=== PATIENT | female | born 1960 | race Caucasian/White ===

== ENCOUNTER → 2023-07-26 13:40 | Outpatient (REF) | payer OTHER, SELFPAY | LOC: HWWDC 13:40 | PROVIDERS: ATTENDING PHYSICIAN Nurse Practitioner Adult Health | DX: Z12.31 Encounter for screening mammogram for malignant neoplasm of breast (principal) | CPT/HCPCS: 77063; 77067 ==

== ENCOUNTER → 2023-09-01 10:53 | Outpatient (REF) | payer OTHER, SELFPAY | LOC: HWRAD 10:53 | PROVIDERS: ATTENDING PHYSICIAN Nurse Practitioner Adult Health; FAMILY PHYSICIAN Nurse Practitioner Adult Health | DX: N95.0 Postmenopausal bleeding (principal) | CPT/HCPCS: 76830; 76856 ==

== ENCOUNTER → 2023-12-21 12:24 | Outpatient (REF) | payer OTHER, SELFPAY | LOC: PAVMRI 12:24 | PROVIDERS: ATTENDING PHYSICIAN Otolaryngology; FAMILY PHYSICIAN Nurse Practitioner Adult Health | DX: C09.9 Malignant neoplasm of tonsil, unspecified (principal); C76.0 Malignant neoplasm of head, face and neck | CPT/HCPCS: 70543; A9575 ==

== ENCOUNTER → 2023-12-22 06:18 | Day surgery (SDC) | payer OTHER, SELFPAY | LOC: GI 06:18 | PROVIDERS: ATTENDING PHYSICIAN Internal Medicine Gastroenterology | DX: Z12.11 Encounter for screening for malignant neoplasm of colon (principal); K63.89 Other specified diseases of intestine; Q43.8 Other specified congenital malformations of intestine; K64.8 Other hemorrhoids; Z83.719 Family history of colon polyps, unspecified | CPT/HCPCS: G0105 ==

== ENCOUNTER 2024-04-30 06:26 | Outpatient (RCR) | payer OTHER, SELFPAY | END 2024-04-30 23:59 | disposition home or self-care (01) | LOC: RPT 06:26 | PROVIDERS: ATTENDING PHYSICIAN Otolaryngology; FAMILY PHYSICIAN Nurse Practitioner Adult Health | DX: M54.2 Cervicalgia (principal); Z73.6 Limitation of activities due to disability; M62.81 Muscle weakness (generalized); Z85.89 Personal history of malignant neoplasm of other organs and systems | CPT/HCPCS: 97110; 97161 ==

== ENCOUNTER 2024-05-23 14:08 | Outpatient (RCR) | payer OTHER, SELFPAY | END 2024-05-23 23:59 | disposition home or self-care (01) | LOC: RPT 14:08 | PROVIDERS: ATTENDING PHYSICIAN Otolaryngology; FAMILY PHYSICIAN Nurse Practitioner Adult Health | DX: M54.2 Cervicalgia (principal); M62.81 Muscle weakness (generalized); Z85.89 Personal history of malignant neoplasm of other organs and systems; Z73.6 Limitation of activities due to disability | CPT/HCPCS: 97110; 97112 ==

== ENCOUNTER → 2024-09-21 13:21 | Outpatient (REF) | payer OTHER, SELFPAY | LOC: HWWDC 13:21 | PROVIDERS: ATTENDING PHYSICIAN Nurse Practitioner Adult Health; FAMILY PHYSICIAN Nurse Practitioner Adult Health | DX: Z78.0 Asymptomatic menopausal state (principal); Z12.31 Encounter for screening mammogram for malignant neoplasm of breast | CPT/HCPCS: 77063; 77067; 77080 ==

== ENCOUNTER → 2025-01-27 10:20 | Outpatient (REF) | payer OTHER, SELFPAY | LOC: MRI 3T 10:20 | PROVIDERS: ATTENDING PHYSICIAN Otolaryngology; FAMILY PHYSICIAN Nurse Practitioner Adult Health | DX: C09.9 Malignant neoplasm of tonsil, unspecified (principal) | CPT/HCPCS: 70543; A9575 ==